=== PATIENT | female | born 1995 | race Caucasian/White ===

== ENCOUNTER → 2016-10-20 | Outpatient (CLI) | payer BC | LOC: FIMAGING 11:58 | PROVIDERS: ATTEND Internal Medicine | DX: N63 Unspecified lump in breast (principal) ==

== ENCOUNTER → 2017-01-03 | Outpatient (CLI) | payer BC | LOC: BMCIMAGING 13:35 | PROVIDERS: ATTEND Internal Medicine | DX: H61.891 Other specified disorders of right external ear (principal) ==